=== PATIENT | female | born 2000 | race Caucasian/White ===

== ENCOUNTER → 2019-02-01 | Outpatient (CLI) | payer BC ==
--- NOTE | 2019-02-01 16:52 | Diagnostic Imaging Report ---
INDICATION: Right breast lump felt by patient's clinician. Patient denies feeling a lump. FINDINGS: Sonographic interrogation of the area of lump in the right breast was performed. This is approximately at the 3 to 6 o'clock location. No solid or cystic mass is seen. No sonographic abnormality is identified. IMPRESSION: No sonographic abnormality is seen. Continued close clinical and self breast exam is recommended to confirm stability of the palpable abnormality. ACR BI-RADS Category 1: Negative. Dictated by: Dictated on workstation # [id number]
== END ==
LOC: RAD 13:08
DX: N63.10 Unspecified lump in the right breast, unspecified quadrant (principal)
CPT/HCPCS: 76641